=== PATIENT | male | born 1990 | race Caucasian/White ===

== ENCOUNTER 2016-11-25 09:35 | Emergency (ER) | payer OTHER ==
[~2016-11-25] VITALS: Ht 175.3 cm; Wt 90.7 kg
[~2016-11-25 09:35] MED LIST: AZIT250T6 PO; PSEU120T9 PO; dayquil PO
[2016-11-25 09:43] VITALS: BP 139/71
[2016-11-25] MEDS ORDERED: KETOROLAC 60 MG/2 ML VIAL. IM ONE (10:00)
[2016-11-25] MEDS ORDERED: ORPHENADRINE CITRATE 60 MG/2 ML VIAL. IM ONE (10:00)
[2016-11-25] MEDS ORDERED: CYCL-331 PO (10:01)
[2016-11-25] MEDS ORDERED: IBUP600T16 PO (10:01)
--- NOTE | 2016-11-25 10:01 | PHYS DOC ---
Past History Past Medical History: Anxiety Past Surgical History: Other Additional Smoking Information: Patient uses a Vap Alcohol Use: None Drug Use: None Adult General Chief Complaint Chief Complaint: BACK PAIN OR INJURY HPI HPI Patient is a 26 year old male who presents with complaint of low back pain. Patient states that he started having pain yesterday which occurred after he had been running. Patient states that he has had history of back problems but denies any formal diagnosis as to the cause. The patient states that he applied a Lidoderm patch to his lower back to help with symptoms with minimal relief. Patient rates his pain currently 7 out of 10. Patient states that the pain is located along the left lower back. Patient also states that he has sharp pains that worsen with movement running along the right hamstring. Denies any associated pain running to the foot, saddle anesthesia, loss of bowel or bladder control, or foot drop. Review of Systems Review of Systems Constitutional: Denies fever or chills [] Eyes: Denies change in visual acuity, redness, or eye pain [] HENT: Denies nasal congestion or sore throat [] Respiratory: Denies cough or shortness of breath [] Cardiovascular: Denies chest pain or edema[] GI: Denies abdominal pain, nausea, vomiting, bloody stools or diarrhea [] : Denies dysuria or hematuria [] Musculoskeletal: Low back pain, right hamstring pain[] Integument: Denies rash or skin lesions [] Neurologic: Denies headache, focal weakness or sensory changes [] Current Medications Current Medications Current Medications Medications (Trade) Dose Ordered Sig/Andrea Start Time Stop Time Status Last Admin Dose Admin Ketorolac Tromethamine (Toradol) 60 mg 1X ONCE 11/25/16 09:45 11/25/16 09:46 UNV Orphenadrine Citrate (Norflex) 60 mg 1X ONCE 11/25/16 09:45 11/25/16 09:46 UNV Allergies Allergies Allergies Coded Allergies Type Severity Reaction Last Updated Verified No Known Drug Allergies 08/22/14 No Physical Exam Physical Exam Constitutional: Well developed, well nourished, afebrile, appears in mild to moderate discomfort. [] HENT: Normocephalic, atraumatic, bilateral external ears normal, oropharynx moist, no oral exudates, nose normal. [] Eyes: PERRLA, EOMI, conjunctiva normal, no discharge. [] Neck: Normal range of motion, no tenderness, supple, no stridor. [] Cardiovascular:Heart rate regular rhythm, no murmur [] Lungs & Thorax: Bilateral breath sounds clear to auscultation [] Abdomen: Bowel sounds normal, soft, no tenderness, no masses, no pulsatile masses. [] Skin: Warm, dry, no erythema, no rash. [] Back: No midline tenderness, left sacroiliac tenderness to palpation, negative straight leg test. [] Extremities: Mild tenderness to palpation along right hamstring, no cyanosis, no clubbing, ROM intact, no edema. [] Neurologic: Alert and oriented X 3, normal motor function, normal sensory function, no focal deficits noted. [] Current Patient Data Vital Signs Vital Signs Date Time Temp Pulse Resp B/P (MAP) Pulse Ox O2 Delivery O2 Flow Rate FiO2 11/25/16 09:43 98.2 50 16 99 Room Air Lab Results Not performed EKG EKG Not performed[] Radiology/Procedures Radiology/Procedures Not performed[] Course & Med Decision Making Course & Med Decision Making Pertinent Labs and Imaging studies reviewed. (See chart for details) The patient was given IM Norflex and IM Toradol in the emergency department with improvement in pain. Patient prescribed Flexeril and ibuprofen for continued outpatient treatment. Advise follow-up in 3-5 days a primary doctor if symptoms not improving and return to emergency department for any worsening or severe symptoms. Patient voiced understanding and in agreement with treatment plan.[] Dragon Disclaimer Dragon Disclaimer This chart was dictated in whole or in part using Voice Recognition software in a busy, high-work load, and often noisy Emergency Department environment. It may contain unintended and wholly unrecognized errors or omissions. Departure Departure: Impression: Primary Impression: Low back pain Additional Impression: Hamstring strain Disposition: 01 HOME, SELF-CARE Condition: IMPROVED Referrals: PCP,NO (PCP) Patient Instructions: Back Pain, Adult, Hamstring Strain Additional Instructions: Follow-up in 3-5 days if symptoms are not improving. Return to the emergency department for any worsening symptoms. Scripts Ibuprofen (IBUPROFEN) 600 Mg Tablet 600 MG PO Q6HRS Y for PAIN, #30 TAB Prov: DARWIN PFEIFFER MD 11/25/16 Cyclobenzaprine Hcl (CYCLOBENZAPRINE HCL) 10 Mg Tablet 1 TAB PO TID Y for MUSCLE PAIN, #30 TAB Prov: DARWIN PFEIFFER MD 11/25/16 Problem Qualifiers Primary Impression: Low back pain Chronicity: acute Back pain laterality: left Sciatica presence: without sciatica Qualified Codes: M54.5 - Low back pain Additional Impression: Hamstring strain Laterality: right Qualified Codes: S76.311A - Strain of muscle, fascia and tendon of the posterior muscle group at thigh level, right thigh, initial encounter DARWIN PFEIFFER MD Nov 25, 2016 10:01
== END 2016-11-25 10:12 | disposition home or self-care (01) ==
LOC: ER 09:35
DX: M54.5 Low back pain (principal); S76.311A Strain of muscle, fascia and tendon of the posterior muscle group at thigh level, right thigh, initial encounter; F41.9 Anxiety disorder, unspecified; X58.XXXA Exposure to other specified factors, initial encounter; Y93.02 Activity, running; Y99.8 Other external cause status; Y92.89 Other specified places as the place of occurrence of the external cause
CPT/HCPCS: 96372; 99284; J1885; J2360

== ENCOUNTER 2017-06-21 20:18 | Emergency (ER) | payer OTHER ==
[~2017-06-21] VITALS: Ht 175.3 cm; Wt 95.3 kg
[2017-06-21 20:18] VITALS: BP 142/77
[~2017-06-21 20:18] MED LIST changes: +CYCL-331 PO; +IBUP600T16 PO
--- NOTE | 2017-06-21 20:20 | ED.ADGEN ---
Past History Past Medical History: Anxiety Past Surgical History: Other Alcohol Use: None Drug Use: None Adult General Chief Complaint Chief Complaint ".. 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 and I fell forward.. 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 Pt. had previous back injury- sprain / strains. Pt. has some sciatic down Lt leg and a guarded gait. Patient denies other injury. DTRs +2 at patella. Has pain along left sciatic nerve. Does have some midline back pain in lumbar sacral area and noted bilateral paraspinal muscle spasms. Patient is normally healthy. No history of recent travel. No other injuries reported. Patient follows at [facility]. Patient drove himself. He was ambulatory. Review of Systems Review of Systems Constitutional: Denies fever or chills [] Eyes: Denies change in visual acuity, redness, or eye pain [] HENT: Denies nasal congestion or sore throat [] Respiratory: Denies cough or shortness of breath [] Cardiovascular: No additional information not addressed in HPI [] GI: Denies abdominal pain, nausea, vomiting, bloody stools or diarrhea [] : Denies dysuria or hematuria [] Musculoskeletal: Complaints of lumbar back pain or joint pain [] Integument: Denies rash or skin lesions [] Neurologic: Denies headache, focal weakness or sensory changes [] Endocrine: Denies polyuria or polydipsia [] All other systems were reviewed and found to be within normal limits, except as documented in this note. Family History Family History Noncontributory Current Medications Current Medications Current Medications Medications (Trade) Dose Ordered Sig/Andrea Start Time Stop Time Status Last Admin Dose Admin Ketorolac Tromethamine (Toradol) 60 mg 1X ONCE 06/21/17 20:45 06/21/17 20:46 DC 06/21/17 21:16 60 MG Morphine Sulfate (Morphine 10mg Syringe) 10 mg 1X ONCE 06/21/17 20:45 06/21/17 20:46 DC 06/21/17 21:17 10 MG Orphenadrine Citrate (Norflex) 60 mg 1X ONCE 06/21/17 20:45 06/21/17 20:46 DC 06/21/17 21:16 60 MG Allergies Allergies Allergies Coded Allergies Type Severity Reaction Last Updated Verified No Known Drug Allergies 08/22/14 No Physical Exam Physical Exam Constitutional: Well developed, well nourished, in moderately acute distress, non-toxic appearance. [] HENT: Normocephalic, atraumatic, bilateral external ears normal, oropharynx moist, no oral exudates, nose normal. [] Eyes: PERRLA, EOMI, conjunctiva normal, no discharge. [] Neck: Normal range of motion, no tenderness, supple, no stridor. [] Cardiovascular:Heart rate regular rhythm, no murmur [] Lungs & Thorax: Bilateral breath sounds clear to auscultation [] Abdomen: Bowel sounds normal, soft, no tenderness, no masses, no pulsatile masses. [] Skin: Warm, dry, no erythema, no rash. [] Back: Lumbar tenderness, no CVA tenderness. [] Extremities: No tenderness, no cyanosis, no clubbing, ROM intact, no edema. [] Neurologic: Alert and oriented X 3, normal motor function, normal sensory function, no focal deficits noted. [] Psychologic: Affect normal, judgement normal, mood normal. [] Current Patient Data Vital Signs Vital Signs Date Time Temp Pulse Resp B/P (MAP) Pulse Ox O2 Delivery O2 Flow Rate FiO2 06/21/17 21:17 20 97 Room Air 06/21/17 20:18 98.3 74 EKG EKG [] Radiology/Procedures Radiology/Procedures CT of lumbar spine shows no obvious fracture or dislocation. Does have degenerative joint changes and disc disease Course & Med Decision Making Course & Med Decision Making Pertinent Labs and Imaging studies reviewed. (See chart for details). Ice packs when necessary. Take Tylenol and ibuprofen for pain. For marked pain may take Vicoprofen up 4 times a day. Take Flexeril 10 mg up to 3 times a day for muscle spasms. Must follow-up primary care. If persistent pain may need MRI. Patient return if any concerns. [] Final Impression Final Impression 1. Sprain/ Strain 2. DJD 3. Disc Disease[] Problems: Dragon Disclaimer Dragon Disclaimer This electronic medical record was generated, in whole or in part, using a voice recognition dictation system. ODESSA DEAN MD Jun 21, 2017 20:20
[2017-06-21] MEDS ORDERED: ORPHENADRINE CITRATE 60 MG/2 ML VIAL. IM ONE (20:45)
[2017-06-21] MEDS ORDERED: KETOROLAC 60 MG/2 ML VIAL. IM ONE (20:45)
[2017-06-21] MEDS ORDERED: MORPHINE SULFATE 10 MG/ML SYRINGE. SQ ONE (20:45)
--- NOTE | 2017-06-21 21:13 | RAD ---
EXAM: Lumbar spine CT without contrast. HISTORY: Trauma. TECHNIQUE: Computed tomographic images of the lumbar spine were obtained without contrast. Multiplanar reformatting was performed. *One or more of the following individualized dose reduction techniques were utilized for this examination: 1. Automated exposure control. 2. Adjustment of the mA and/or kV according to patient size. 3. Use of iterative reconstruction technique. COMPARISON: None. FINDINGS: There is slight retrolisthesis of L4 on L5. There is mild endplate remodeling and Schmorl's node formation at this level. There are few additional endplate Schmorl's nodes. There is minimal decreased anterior vertebral body height at T12, likely developmental. There is no suspicious osseous lesion. The sacroiliac joints are intact. At L1-L2, there is no stenosis. At L2-L3, there is no stenosis At L3-4, there is no stenosis At L4-5, there is a shallow broad-based left paracentral disc protrusion superimposed on a disc bulge and endplate remodeling. There is retrolisthesis. There is mild actually there is mild central canal stenosis. At L5-S1, there is a shallow left paracentral disc protrusion superimposed on a disc bulge. There is no stenosis. IMPRESSION: 1. No acute osseous finding. 2. Degenerative change predominantly at the lower lumbar levels, described above. Electronically signed by: Linda Odonnell MD (06/21/2017 9:10 PM) [facility]
[2017-06-21] MEDS ORDERED: CYCL-331 PO (21:48)
[2017-06-21] MEDS ORDERED: HYDR-79 PO (21:48)
[2017-06-21] MEDS ORDERED: ACET500T68 PO (21:48)
[2017-06-21] MEDS ORDERED: IBUP800T19 PO (21:48)
== END 2017-06-21 22:02 | disposition home or self-care (01) ==
LOC: ER 20:18
DX: S39.82XA Other specified injuries of lower back, initial encounter (principal); M47.896 Other spondylosis, lumbar region; F41.9 Anxiety disorder, unspecified; W19.XXXA Unspecified fall, initial encounter; Y93.89 Activity, other specified; Y99.8 Other external cause status; Y92.89 Other specified places as the place of occurrence of the external cause
CPT/HCPCS: 72131; 96372; 99284; J1885; J2270; J2360